=== PATIENT | female | born 2005 | race Caucasian/White ===

== ENCOUNTER 2025-06-12 15:16 | Emergency (ER) | payer SELFPAY ==
[2025-06-12 15:16] VITALS: BP 160/87; PULSE 94; RESP 18; TEMP 36.6; O2SAT 100; BMI 39.4
--- NOTE | 2025-06-12 15:26 | CT_ITS ---
EXAM: BRAIN/HEAD WITHOUT CONTRAST; SPINE CERVICAL WITHOUT CONTRAS CLINICAL HISTORY: HEAD INJURY; HEAD TYRAUMA COMPARISON: None. TECHNIQUE: Noncontrast images of the head and cervical spine with multiplanar reconstructions. Dose reduction techniques were used including intermediate exposure control (AEC),iterative reconstruction technique, and/or mA and/or KV dose adjustments based on patient's size. FINDINGS: HEAD: No acute intracranial hemorrhage, extra-axial collection, mass effect or evidence of acute infarct. Ventricles and subarachnoid spaces are normal in size. Orbital contents are unremarkable. Intact skull base and calvarium. No mastoid effusions. Mild scattered mucosal thickening in the bilateral ethmoid air cells and maxillary sinuses with trace dependent fluid in the maxillary sinuses, which can be seen with acute sinusitis. CERVICAL SPINE: No acute fracture or subluxation. Preserved vertebral body heights. Straightening of the normal cervical lordosis may be positional in nature or related to muscle spasm. No significant degenerative changes are appreciated. No prevertebral soft tissue swelling. Clear lung apices. CT/Spine Cervical without Contras IMPRESSION: No acute intracranial or cervical spine traumatic findings. Reading Location: [id number]
--- NOTE | 2025-06-12 15:26 | CT_ITS ---
EXAM: BRAIN/HEAD WITHOUT CONTRAST; SPINE CERVICAL WITHOUT CONTRAS CLINICAL HISTORY: HEAD INJURY; HEAD TYRAUMA COMPARISON: None. TECHNIQUE: Noncontrast images of the head and cervical spine with multiplanar reconstructions. Dose reduction techniques were used including intermediate exposure control (AEC),iterative reconstruction technique, and/or mA and/or KV dose adjustments based on patient's size. FINDINGS: HEAD: No acute intracranial hemorrhage, extra-axial collection, mass effect or evidence of acute infarct. Ventricles and subarachnoid spaces are normal in size. Orbital contents are unremarkable. Intact skull base and calvarium. No mastoid effusions. Mild scattered mucosal thickening in the bilateral ethmoid air cells and maxillary sinuses with trace dependent fluid in the maxillary sinuses, which can be seen with acute sinusitis. CERVICAL SPINE: No acute fracture or subluxation. Preserved vertebral body heights. Straightening of the normal cervical lordosis may be positional in nature or related to muscle spasm. No significant degenerative changes are appreciated. No prevertebral soft tissue swelling. Clear lung apices. CT/Spine Cervical without Contras IMPRESSION: No acute intracranial or cervical spine traumatic findings. Reading Location: [id number]
--- NOTE | 2025-06-12 15:26 | CT_ITS ---
EXAM: BRAIN/HEAD WITHOUT CONTRAST; SPINE CERVICAL WITHOUT CONTRAS CLINICAL HISTORY: HEAD INJURY; HEAD TYRAUMA COMPARISON: None. TECHNIQUE: Noncontrast images of the head and cervical spine with multiplanar reconstructions. Dose reduction techniques were used including intermediate exposure control (AEC),iterative reconstruction technique, and/or mA and/or KV dose adjustments based on patient's size. FINDINGS: HEAD: No acute intracranial hemorrhage, extra-axial collection, mass effect or evidence of acute infarct. Ventricles and subarachnoid spaces are normal in size. Orbital contents are unremarkable. Intact skull base and calvarium. No mastoid effusions. Mild scattered mucosal thickening in the bilateral ethmoid air cells and maxillary sinuses with trace dependent fluid in the maxillary sinuses, which can be seen with acute sinusitis. CERVICAL SPINE: No acute fracture or subluxation. Preserved vertebral body heights. Straightening of the normal cervical lordosis may be positional in nature or related to muscle spasm. No significant degenerative changes are appreciated. No prevertebral soft tissue swelling. Clear lung apices. CT/Brain/Head without Contrast IMPRESSION: No acute intracranial or cervical spine traumatic findings. Reading Location: [id number]
--- NOTE | 2025-06-12 15:26 | CT_ITS ---
EXAM: BRAIN/HEAD WITHOUT CONTRAST; SPINE CERVICAL WITHOUT CONTRAS CLINICAL HISTORY: HEAD INJURY; HEAD TYRAUMA COMPARISON: None. TECHNIQUE: Noncontrast images of the head and cervical spine with multiplanar reconstructions. Dose reduction techniques were used including intermediate exposure control (AEC),iterative reconstruction technique, and/or mA and/or KV dose adjustments based on patient's size. FINDINGS: HEAD: No acute intracranial hemorrhage, extra-axial collection, mass effect or evidence of acute infarct. Ventricles and subarachnoid spaces are normal in size. Orbital contents are unremarkable. Intact skull base and calvarium. No mastoid effusions. Mild scattered mucosal thickening in the bilateral ethmoid air cells and maxillary sinuses with trace dependent fluid in the maxillary sinuses, which can be seen with acute sinusitis. CERVICAL SPINE: No acute fracture or subluxation. Preserved vertebral body heights. Straightening of the normal cervical lordosis may be positional in nature or related to muscle spasm. No significant degenerative changes are appreciated. No prevertebral soft tissue swelling. Clear lung apices. CT/Brain/Head without Contrast IMPRESSION: No acute intracranial or cervical spine traumatic findings. Reading Location: [id number]
--- NOTE | 2025-06-12 15:29 | EX.ED.GENINJ ---
HPI History of Present Illness Chief Complaint: Head Injury Informant: patient Onset/Context/Timing Onset: Yesterday Mechanism/Context: Blunt Injury Quality of Pain: Dull and Aching Current Severity: Moderate Maximum Severity: Moderate Associated Symptoms Associated Symptoms: Negative for Parasthesias, Weakness, Loss of function, Inability to ambulate, Loss of consciousness or Amnesia Narrative Narrative: 20-year-old with a history of asthma. Was playing on a slip and slide yesterday she fell backwards striking the back of her head. No LOC. But since that time she has been very nauseated and has a significant headache. Also neck pain. Denies any weakness or numbness to her arms and legs. She is on no blood thinners. Prior similar symptoms: No Recent Illness/Hospitalization: No [facility] Medical History (Updated 06/12/25 @ 15:[address] Joshua Johnson MD) Duplex kidney with bilateral vesicoureteral reflux Asthma Home Medications ?Medication ?Instructions ?Recorded ?Last Taken ?Type albuterol sulfate 2.5 mg/3 mL 2.5 mg inhalation Q6H 03/21/23 Unknown History (0.083 %) solution for nebulization albuterol sulfate 90 mcg/actuation 2 puff inhalation Q6H PRN 03/21/23 Unknown History aerosol inhaler shortness of breath or wheezing cefdinir 300 mg capsule 300 mg PO BID #20 caps 03/21/23 Unknown Rx prednisone 20 mg tablet 40 mg (2 x 20 mg) PO DAILY #20 tabs 03/21/23 Unknown Rx drospirenone 3 mg-ethinyl 1 tab PO DAILY #28 tabs 03/28/23 Unknown Rx estradiol 0.02 mg tablet (Loryna (28)) fluticasone propionate 44 2 puff inhalation BID #10.6 grams 03/28/23 Unknown Rx mcg/actuation HFA aerosol inhaler (Flovent HFA) ondansetron 4 mg disintegrating 4 mg PO Q6H PRN nausea and 06/12/25 Unknown Rx tablet vomiting #10 tabs Allergy/AdvReac Type Severity Reaction Status Date / Time penicillin V Allergy Intermediate Rash Verified 06/12/25 15:18 cat dander Allergy wheezing Verified 06/12/25 15:18 horse dander Allergy Anaphylaxis Verified 06/12/25 15:18 Social History Smoking Status: Never smoker ROS ROS ED ROS Narrative Headache post head trauma. Neck pain posttrauma. Constitutional Constitutional ED: Denies chills or fever(s) Eyes Eyes: Denies blurry vision ENT ENT ED: Denies ear pain Cardiovascular Cardiovascular: Denies chest pain Respiratory/Chest Respiratory/Chest: Denies cough or dyspnea Gastrointestinal Gastrointestinal: Reports nausea; Denies abdominal pain, diarrhea or vomiting Genitourinary Genitourinary ED: Denies dysuria or hematuria Musculoskeletal Musculoskeletal: Denies arthralgias Integumentary Denies abscess Neurologic Neurologic: Reports headache(s); Denies paresthesias or weakness Psychiatric Psychiatric: Denies anxiety or depression Endocrine Endocrinology: Denies cold intolerance Hematologic/Lymphatic Hematologic/Lymphatic: Denies easy bleeding, easy bruising or lymphadenopathy Allergic/Immunologic Allergic/Immunologic ED: Denies mouth swelling, tongue swelling or urticaria EXAM Physical Exam Narrative Exam Narrative: 20-year-old female sitting upright in bed. Vital signs are stable afebrile. H EENT exam pupils are round and reactive to light.. No facial trauma. Tenderness to the left posterior scalp with no swelling. No laceration. C-spine diffuse tenderness. Paracervical soft tissue tenderness. Trachea midline. Lungs clear to auscultation bilaterally. Heart regular rhythm no murmur. Chest wall ribs nontender. Abdomen soft nontender. Pelvic girdle intact. Moving all 4 extremities. Normal float operator strength. Normal dorsi plantarflexion. Normal touch sensation. Normal range of motion. Back thoracic and lumbar spine and back nontender. Neurologically she is awake alert. Answering questions following commands. GCS 15. Const Vital Signs: 06/12/25 15:16 06/12/25 15:34 Temperature 97.8 F Temperature Source Oral Pulse Rate 94 Respiratory Rate 18 Respiratory Effort Normal Non-Labored Respiratory Depth Normal Respiratory Pattern Normal Blood Pressure 160/87 H Blood Pressure Mean 111 Pulse Ox 100 Oxygen Delivery Method Room Air Positive well nourished and well developed; Negative for cachectic, contractures or unkempt General Appearance ED: well developed and NAD; Negative for unkempt, cachectic or contractures Nutritional Appearance: Negative for cachectic HEENT trauma and tenderness Eyes PERRL and EOMs intact bilaterally Neck General: tenderness Chest Wall inspection of chest normal and palpation of chest normal Resp normal respiratory effort and clear to auscultation bilaterally Cardio regular rhythm, S1 normal heart sound, S2 normal heart sound and no murmurs GI normal to inspection, nondistended, normoactive bowel sounds, non-tender, non-distended and no masses Auscultation: normoactive bowel sounds Palpation: soft; Negative for tender, guarding or rebound tenderness present Back/Spine normal to inspection and no thoracic nor lumbar tenderness General Back: Negative for CVA tenderness Thoracic Spine / Upper Back: Negative for thoracic spinal tenderness Extremity normal to inspection and full ROM General Extremety ED: Negative for deformity, edema or tenderness General Extremity: Negative for deformity or edema Neuro oriented x3, CN's II-XII intact bilaterally, moves all extremities, no focal motor deficits and no sensory deficits noted Neuro Narrative: GCS 15. [place] Coma Scale: document GCS findings Spontaneous Obeys Commands Oriented 15 Sensorium / Orientation: alert, oriented to person, oriented to place and oriented to time; Negative for orientation impaired, lethargic or stuporous Motor Exam: strength 5/5 throughout Psych mental status grossly normal and thought process normal Appearance: Negative for unkempt Skin no rashes or lesions noted, no wounds, skin turgor normal and no jaundice Rashes: No rashes noted Trauma: Negative for abrasion Wounds: Negative for wounds noted MDM MDM MDM Narrative Medical decision making narrative: Fluid 20-year-old fell backwards last night around 10 PM striking the back of her head planing of headache, nausea and neck pain. CAT scans and neck can be obtained. Otherwise exam benign. I suspect a concussion with cervical strain. Rule out fracture or intracranial bleed. She will be given Zofran for nausea. She did not want thing for pain. Repeat exam patient is doing well 4:36 PM. She be discharged home treated for a concussion and cervical strain. History & Record Review Discussion w/independent historian: Patient Additional record(s) reviewed:: No prior records Radiography Diagnostic Testing: Clinical Impression(s) from Imaging Studies Brain CT 06/12/25 15:26 IMPRESSION: No acute intracranial or cervical spine traumatic findings. Reading Location: [facility] Cervical Spine CT 06/12/25 15:26 IMPRESSION: No acute intracranial or cervical spine traumatic findings. Reading Location: [facility] CT brain and C-spine I reviewed I do not see any acute abnormality. No intracranial bleed. No fracture. Awaiting radiology formal interpretation. Radiologist read the CT of the brain and C-spine the same with no acute abnormalities. Discharge Plan Triage Chief Complaint: Head Injury ED Provider: Joshua Johnson Dx/Rx/DC Orders Clinical Impression: Concussion, Acute cervical myofascial strain Instructions: ED Concussion, ED Neck Sprain or Strain Prescriptions: New ondansetron 4 mg tablet,disintegrating 4 mg PO Q6H PRN (Reason: nausea and vomiting) Qty: 10 0RF No Action albuterol sulfate 90 mcg/actuation HFA aerosol inhaler 2 puff inhalation Q6H PRN (Reason: shortness of breath or wheezing) albuterol sulfate 2.5 mg /3 mL (0.083 %) solution for nebulization 2.5 mg inhalation Q6H cefdinir 300 mg capsule 300 mg PO BID Qty: 20 0RF prednisone 20 mg tablet 40 mg PO DAILY Qty: 20 0RF drospirenone-ethinyl estradiol [Loryna (28)] 3-0.02 mg tablet 1 tab PO DAILY Qty: 28 12RF fluticasone propionate [Flovent HFA] 44 mcg/actuation HFA aerosol inhaler 2 puff inhalation BID Qty: 10.6 12RF Rx Instructions: administer with spacer Primary Care Provider: Care Physician,No Primary Referrals: NOT,DEFINED [Non-Staff] - Activity Restrictions/Additional Instructions: Motrin and Tylenol for pain. Zofran as needed for nausea. Plenty of fluids and rest. Increase your activity as tolerated. No contact sports until you are feeling much better. You may have intermittent headaches and nausea for the next several weeks. You may want to sleep more be having trouble sleeping due to the concussion that should progressively all improved. Print Language: [place]al[place] Disposition Disposition: Home, Self Care
[2025-06-12 16:41] VITALS: BP 167/74; PULSE 89; RESP 16; TEMP 36.6; O2SAT 99
== END 2025-06-12 16:42 | disposition home or self-care (01) ==
LOC: ED 16:11
PROVIDERS: Emergency Provider Emergency Medicine; Visit Provider Emergency Medicine
DX: S06.0X0A Concussion without loss of consciousness, initial encounter (principal); S16.1XXA Strain of muscle, fascia and tendon at neck level, initial encounter; J45.909 Unspecified asthma, uncomplicated; W01.10XA Fall on same level from slipping, tripping and stumbling with subsequent striking against unspecified object, initial encounter; Y93.18 Activity, surfing, windsurfing and boogie boarding
CPT/HCPCS: 70450; 72125; 99282